=== PATIENT | male | born 1975 | race African-American/Black ===

== ENCOUNTER 2018-08-20 18:04 | Emergency (ER) | payer BC ==
[2018-08-20 18:13] VITALS: TEMP 98.2
[2018-08-20] MEDS ORDERED: IPRATROPIUM-ALBUTEROL 3 ML NEB INHALATION STA (18:41)
[2018-08-20] MEDS ORDERED: predniSONE 20 MG TAB PO STA (18:56)
--- NOTE | 2018-08-20 19:14 | ED ---
General Adult HPI - General Chief complaint: Shortness of Breath Stated complaint: LIDYA Time Seen by Provider: 08/20/18 18:42 Source: patient Mode of arrival: ambulatory Limitations: no limitations - History of Present Illness Initial comments: 42-year-old male past medical history of asthma presenting today for chief complaint of shortness of breath. Patient states that he has had congestion and cough for the past 2 days denies fever chills or night sweats. Patient denies any hemoptysis. He states that he is out of his rescue inhaler and has had increasing shortness of breath over the day and feels similar to his previous asthma exacerbations. He states the symptoms are "nothing new". 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 Patient does state that it feels like pins and needles when he coughs, denies any chest pressure, or seizures the upper extremities, jaw pain, nausea, vomiting, abdominal pain. Christine virus negative, upon arrival patient appears well, no signs of acute distress. Vital signs the center limit. Patient actually well, however 7 room air. Heart rate within normal limits. - Related Data Previous Rx's Medication Instructions Recorded Ipratropium [place] 0.06%Nasal 2 spray EA NOSTRIL BID 4 Days #1 08/20/18 [Atrovent Nasal 0.06%] bottle predniSONE 20 mg PO BID 5 Days #10 tab 08/20/18 Allergies Allergy/AdvReac Type Severity Reaction Status Date / Time erythromycin base Allergy Unknown Verified 08/20/18 18:09 Penicillins Allergy Itching Verified 08/20/18 18:09 Review of Systems ROS Statement: Those systems with pertinent positive or pertinent negative responses have been documented in the HPI. ROS Other: All systems not noted in ROS Statement are negative. Constitutional: Denies: fever, chills, night sweats ENT: Denies: ear pain, throat pain Respiratory: Reports: cough, dyspnea, wheezes. Denies: hemoptysis, stridor Cardiovascular: Reports: chest pain (with deep inspiration). Denies: palpitations, dyspnea on exertion, orthopnea, edema Endocrine: Denies: fatigue Gastrointestinal: Denies: abdominal pain, nausea, vomiting, diarrhea, constipation, hematemesis Genitourinary: Denies: urgency, dysuria, frequency, hematuria Musculoskeletal: Denies: back pain Skin: Denies: rash, lesions Neurological: Denies: headache, weakness, numbness, paresthesias, confusion Past Medical History Past Medical History: Asthma History of Any Multi-Drug Resistant Organisms: None Reported Past Surgical History: Hernia Repair Past Psychological History: Anxiety Smoking Status: Current every day smoker Past Alcohol Use History: Daily Past Drug Use History: Marijuana General Exam - General Exam Comments Initial Comments: General: The patient is awake and alert, in no distress, and does not appear acutely ill. Eye: +3 pupils are equal, round and reactive to light, extra-ocular movements are intact. No nystagmus. There is normal conjunctiva bilaterally. No signs of icterus. Ears, nose, mouth and throat: There are moist mucous membranes and no oral lesions. Oropharynx is nonerythematous, no tonsillar enlargement or exudates or lesion. No anterior cervical adenopathy. Uvula midline. Tympanic membranes are within normal limits bilaterally, not erythematous no retractions bulging or effusion. External auditory canals not edematous or erythematous. Clear rhinorrhea. Noted postnasal drip. No sinus tenderness. Neck: The neck is supple, there is no tenderness or JVD. Cardiovascular: There is a regular rate and rhythm. No murmur, rub or gallop is appreciated. Respiratory: Respirations are non-labored, breath sounds are equal. Mild wheeze noted inspiratory only on examination. No stridor, rales, or rhonchi. No retractions or abdominal breathing. Gastrointestinal: Soft, non-distended, non-tender abdomen without masses or organomegaly noted. There is no rebound or guarding present. No CVA tenderness. Bowel sounds are unremarkable. Musculoskeletal: Normal ROM, no tenderness. Strength 5/5. Sensation intact. Radial pulses equal bilaterally 2+. Neurological: A&O x 3. CN II-XII intact, There are no obvious motor or sensory deficits. Coordination appears grossly intact. Speech is normal. Skin: Skin is warm and dry and no rashes or lesions are noted. Psychiatric: Cooperative, appropriate mood & affect, normal judgment. Limitations: no limitations Course Vital Signs 08/20/18 08/20/18 08/20/18 18:09 18:50 19:07 Temperature 98.2 F Pulse Rate 91 92 92 Respiratory 18 Rate Blood Pressure 160/108 O2 Sat by Pulse 100 Oximetry 08/20/18 08/20/18 08/20/18 20:34 20:43 21:04 Temperature Pulse Rate 96 92 85 Respiratory 16 Rate Blood Pressure 129/87 O2 Sat by Pulse 100 Oximetry EKG Findings - EKG Comments: EKG Findings:: A 12-lead EKG was performed and shows the following: Rate is 72bpm, and rhythm is normal sinus. There are normal QRS complexes and normal R- wave progression. ST segments have no elevation or depression, and CT segments appear normal. Medical Decision Making - Medical Decision Making Upon arrival patient oxygen a well 100% on room air, there is no signs of respiratory distress. Patient does appear to have upper respiratory symptoms. Clear rhinorrhea with noted congestion. Mild inspiratory wheeze on examination. Patient states he has not had his rescue inhaler at home he used his last "bit" the past 2 days. Patient had significant improvement upon 1 duoneb and 1 albuterol treatment. Patient given 60 mg prednisone. Patient was discharged with 20 mg twice a day 5 days. Patient was given albuterol rescue inhaler upon discharge given is a holiday, we called local pharmacies and all within the area appeared to be closed. Laboratory findings unremarkable, chest x-ray within normal limits. At this time I do feel patient is stable for discharge with primary care follow-up next 1-2 days. I discussed the case Dr. Garcia agrees impression and plan. Patient is agreeable discharge, he verbalized understanding of all return parameters. He denies questions at this time. Vital signs within normal limits upon discharge. 100% on room air - Lab Data Result diagrams: 08/20/18 19:00 Lab Results 08/20/18 08/20/18 Range/Units 19:00 19:00 WBC 5.6 (3.8-10.6) k/uL RBC 5.05 (4.30-5.90) m/uL Hgb 15.5 (13.0-17.5) gm/dL Hct 45.3 (39.0-53.0) % MCV 89.6 (80.0-100.0) fL MCH 30.7 (25.0-35.0) pg MCHC 34.2 (31.0-37.0) g/dL RDW 12.8 (11.5-15.5) % Plt Count 199 (150-450) k/uL Neutrophils % 65 % Lymphocytes % 18 % Monocytes % 8 % Eosinophils % 5 % Basophils % 1 % Neutrophils # 3.7 (1.3-7.7) k/uL Lymphocytes # 1.0 (1.0-4.8) k/uL Monocytes # 0.4 (0-1.0) k/uL Eosinophils # 0.3 (0-0.7) k/uL Basophils # 0.1 (0-0.2) k/uL Total Creatine Kinase 153 (55-170) U/L CK-MB (CK-2) 1.4 (0.0-2.4) ng/mL CK-MB (CK-2) Rel Index 0.9 Troponin I <0.012 (0.000-0.034) ng/mL Disposition Clinical Impression: Asthma exacerbation, URI (upper respiratory infection) Disposition: HOME SELF-CARE Condition: Good Instructions: Asthma (ED), Upper Respiratory Infection (ED) Additional Instructions: Please use medication as discussed. Please follow-up with family doctor in the next 2 days. Please return to emergency room if the symptoms increase or worsen or for any other concerns. Prescriptions: Ipratropium [place] 0.06%Nasal [Atrovent Nasal 0.06%] 2 spray EA NOSTRIL BID 4 Days #1 bottle predniSONE 20 mg PO BID 5 Days #10 tab Is patient prescribed a controlled substance at d/c from ED?: No When asked, does pt state using other controlled substances?: No Referrals: None,Stated [Primary Care Provider] - 1-2 days [facility] [NON-STAFF] - 1-2 days Time of Disposition: 21:17
[2018-08-20 19:43] LABS: Basophils # (A) 0.1 k/uL (0-0.2); Basophils % (A) 1 %; Eosinophils # (A) 0.3 k/uL (0-0.7); Eosinophils % (A) 5 %; HCT 45.3 % (39.0-53.0); HGB 15.5 gm/dL (13.0-17.5); Lymphocytes % (A) 18 %; MCH 30.7 pg (25.0-35.0); MCHC 34.2 g/dL (31.0-37.0); MCV 89.6 fL (80.0-100.0); Mean Platelet Volume 6.5; Monocytes # (A) 0.4 k/uL (0-1.0); Monocytes % (A) 8 %; Neutrophils # (A) 3.7 k/uL (1.3-7.7); Neutrophils % (A) 65 %; Platelet Count 199 k/uL (150-450); RBC 5.05 m/uL (4.30-5.90); RDW 12.8 % (11.5-15.5); WBC 5.6 k/uL (3.8-10.6)
[2018-08-20] MEDS ORDERED: ALBUTEROL NEBULIZED 2.5 MG/3 ML INHALATION STA ×2 (19:45→19:49)
[2018-08-20 20:07] LABS: Creatine Kinase 153 U/L (55-170)
--- NOTE | 2018-08-20 20:10 | XR ---
EXAMINATION TYPE: XR chest 2V DATE OF EXAM: 08/20/2018 COMPARISON: NONE HISTORY: Difficulty breathing TECHNIQUE: Frontal and lateral views of the chest are obtained. FINDINGS: Heart and mediastinum are normal. Lungs are clear. Diaphragm is normal. There are chest le ads. Bony thorax appears normal. IMPRESSION: Normal chest
[2018-08-20 20:20] LABS: Creatine Kinase MB 1.4 ng/mL (0.0-2.4); Troponin I <0.012 ng/mL (0.000-0.034)
[2018-08-20] MEDS ORDERED: ALBUTEROL INHALER 60 PUFF/8 GM INHALER INHALATION STA (20:59)
[2018-08-20 21:04] VITALS: BP 129/87; PULSE 85; RESP 16
== END 2018-08-20 21:28 | disposition home or self-care (01) ==
LOC: EC 18:04
DX: J45.901 Unspecified asthma with (acute) exacerbation (principal); J06.9 Acute upper respiratory infection, unspecified; F17.200 Nicotine dependence, unspecified, uncomplicated; Z88.0 Allergy status to penicillin; Z88.1 Allergy status to other antibiotic agents
CPT/HCPCS: 36415; 94640 ×2; 93005; 82550; 82553; 84484; 85025; 71046; 99285; J7512

== ENCOUNTER 2018-12-07 19:43 | Emergency (ER) | payer BC ==
[2018-12-07 19:48] VITALS: BP 158/102; PULSE 80; RESP 20; TEMP 98.6
[2018-12-07] MEDS ORDERED: PROPARACAINE 0.5% OPHTH DROPS 15 ML BTL LEFT EYE STA (19:49)
[2018-12-07] MEDS ORDERED: FLUORESCEIN STRIPS 1 MG STRIP LEFT EYE ONE (19:49)
[2018-12-07] MEDS ORDERED: DIPH,PERTUS(ACELL)TETVAC-LF 0.5 ML VIAL IM ONE (19:50)
--- NOTE | 2018-12-07 20:29 | ED ---
General Adult HPI - General Source: patient, RN notes reviewed Mode of arrival: ambulatory Limitations: no limitations <Severo Smith P - Last Filed: 12/07/18 20:33> <Gina Ruelas P - Last Filed: 12/07/18 21:24> - General Chief complaint: ENT Stated complaint: FB eye Time Seen by Provider: 12/07/18 19:49 - History of Present Illness Initial comments: 43-year-old male presents to the emergency determine for chief for an body in the right eye. Patient states he was grinding metal about 7 hours ago and had a piece lodged in his right eye. Patient states he went to [facility] and they sent him here. Denies any visual changes. Patient states his eye just feels really irritated. Denies any significant eye pain. States tetanus is up-to-date within the past 5 years.Patient has no other complaints at this time including shortness of breath, chest pain, abdominal pain, nausea or vomiting, headache, or visual changes. (Severo Smith) - Related Data Previous Rx's Medication Instructions Recorded Ipratropium [place] 0.06%Nasal 2 spray EA NOSTRIL BID 4 Days #1 08/20/18 [Atrovent Nasal 0.06%] bottle predniSONE 20 mg PO BID 5 Days #10 tab 08/20/18 Ofloxacin 0.3% Ophth Soln [Ocuflox 2 drops RIGHT EYE Q6H 5 Days ml 12/07/18 Ophth Soln] Allergies Allergy/AdvReac Type Severity Reaction Status Date / Time erythromycin base Allergy Unknown Verified 12/07/18 19:48 Penicillins Allergy Itching Verified 12/07/18 19:48 Review of Systems ROS Other: All systems not noted in ROS Statement are negative. <Severo Smith P - Last Filed: 12/07/18 20:33> ROS Other: All systems not noted in ROS Statement are negative. <Gina Ruelas P - Last Filed: 12/07/18 21:24> ROS Statement: Those systems with pertinent positive or pertinent negative responses have been documented in the HPI. Past Medical History Past Medical History: Asthma, Hypertension History of Any Multi-Drug Resistant Organisms: None Reported Past Surgical History: Hernia Repair Past Psychological History: Anxiety Smoking Status: Current every day smoker Past Alcohol Use History: Daily Past Drug Use History: Marijuana <LuisSevero P - Last Filed: 12/07/18 20:33> General Exam Limitations: no limitations General appearance: alert, in no apparent distress Head exam: Present: atraumatic, normocephalic, normal inspection Eye exam: Present: PERRL, EOMI, other (Foreign body evident at about 6:00 in the right cornea. After foreign body removed the eye was stained with erythromycin ointment and visualized with the Wood's lamp, negative Josse sign, only abrasion present where foreign body previously located.). Absent: scleral icterus, conjunctival injection, periorbital swelling ENT exam: Present: normal exam, mucous membranes moist Neck exam: Present: normal inspection, full ROM. Absent: tenderness, meningismus, lymphadenopathy Respiratory exam: Present: normal lung sounds bilaterally. Absent: respiratory distress, wheezes, rales, rhonchi, stridor Cardiovascular Exam: Present: regular rate, normal rhythm, normal heart sounds. Absent: systolic murmur, diastolic murmur, rubs, gallop, clicks Neurological exam: Present: alert, oriented X3, CN II-XII intact Psychiatric exam: Present: normal affect, normal mood <Severo Smith P - Last Filed: 12/07/18 20:33> Course Vital Signs 12/07/18 19:44 Temperature 98.6 F Pulse Rate 80 Respiratory 20 Rate Blood Pressure 158/102 O2 Sat by Pulse 98 Oximetry Medical Decision Making <Severo Smith P - Last Filed: 12/07/18 20:33> <Gina Ruelas P - Last Filed: 12/07/18 21:24> - Medical Decision Making 43-year-old male presents for foreign body in the right eye. Patient was grinding metal when this occurred. Patient denies any significant pain, just states he has irritation. States tetanus is up-to-date. Denies any visual changes. Denies any pain with moving the eye. On exam there is a foreign body at 6:00. This was removed easily after numbing the area proparacaine with a swab. No Occasions with removal. There is no rust ring present. However I did discuss risk of rust ring developing and importance of following up with primary care or ophthalmology. The eye was then stained with proparacaine and fluorescein, visualized with lid same, negative Josse sign, no other abrasions present. Patient started on ofloxacin drops. He will follow up with primary care in 1-2 days. Will return if he has any worsening symptoms. Patient does not wear contacts. (Severo Smith) I was available for consultation in the emergency department. The history and physical exam were done by the midlevel provider. I was consulted for this patient's care. I reviewed the case with the midlevel provider and based on their presentation of the patient, I agree with the assessment, medical decision making and plan of care as documented. (Gina Ruelas) Disposition Is patient prescribed a controlled substance at d/c from ED?: No Time of Disposition: 20:28 <Severo Smith - Last Filed: 12/07/18 20:33> <Gina Ruelas - Last Filed: 12/07/18 21:24> Clinical Impression: Corneal foreign body Disposition: HOME SELF-CARE Condition: Good Instructions (If sedation given, give patient instructions): Corneal Abrasion (ED), Eye Foreign Body (ED) Additional Instructions: Please use antibiotic drops as discussed. Please follow-up with primary care or ophthalmology in 1-2 days. Return here to the emergency department if you have any worsening symptoms. Prescriptions: Ofloxacin 0.3% Ophth Soln [Ocuflox Ophth Soln] 2 drops RIGHT EYE Q6H 5 Days ml Referrals: Bj Rivas MD [Primary Care Provider] - 1-2 days Chris Busch MD [STAFF PHYSICIAN] - 1-2 days
== END 2018-12-07 20:33 | disposition home or self-care (01) ==
LOC: EC 19:43
DX: T15.01XA Foreign body in cornea, right eye, initial encounter (principal); F17.200 Nicotine dependence, unspecified, uncomplicated; Z88.1 Allergy status to other antibiotic agents; Z88.0 Allergy status to penicillin; Y93.89 Activity, other specified
CPT/HCPCS: 99282

== ENCOUNTER → 2019-08-01 | Day surgery (SDC) | payer BC, OTHER ==
[2019-07-29 14:58] VITALS: BMI 23.1
[~2019-08-01] MED LIST: BUPIVACAINE (PF) 0.5% 30 ML VIAL SQ ONE; DEXAMETHASONE SOD PHOSPHATE 10 MG/ML 1 ML VIAL IV ONE; LACTATED RINGERS 1,000 ML IV SCH; LIDOCAINE 1% 20 ML VIAL (10MG/ML) FOR IV START INTRADERMA PRN; LIDOCAINE 1% INJ 10MG/ML (20 ML MDV) ONE; LIDOCAINE 1%-EPI 1:100,000 30 ML VIAL SQ ONE; MIDAZOLAM 2 MG/2 ML VIAL IV PRN; MIDAZOLAM 2 MG/2 ML VIAL ONE; ONDANSETRON 4 MG/2 ML VIAL IVP ONE; PROPOFOL 10 MG/ML 20 ML VIAL IV ONE; Pre Op ABX Message 1 EACH MISC MISCELLANE ONE; SCOPOLAMINE 1.5MG/72HR PATCH TRANSDERM ONE; fentaNYL (PF) 50 MCG/ML 2 ML AMP ONE
[2019-08-01 17:04] VITALS: TEMP 97
[2019-08-01] MEDS: HYDROmorphone 0.5 MG/0.5 ML SYRINGE IVP PRN ×2 (17:15→17:25)
--- NOTE | 2019-08-01 17:20 | P.OP ---
Date of Procedure: 08/01/19 Preoperative Diagnosis: Right carpal tunnel syndrome Postoperative Diagnosis: Right carpal tunnel syndrome Procedure(s) Performed: Right endoscopic carpal tunnel release Anesthesia: VENANCIOA, local Surgeon: Michael Marie Estimated Blood Loss (ml): 2 Disposition: PACU Indications for Procedure: The patient is a pleasant 43-year-old male who was diagnosed with right carpal tunnel syndrome. Operative and nonoperative treatment options (and associated risks and benefits) were discussed in the office. The patient elected to proceed with surgical release. The operative site was confirmed and marked in preop. Consent forms were signed. Description of Procedure: The patient was brought to the operating suite and positioned supine with the right arm on a hand table. A tourniquet was placed on the operative arm. Anesthesia was administered uneventfully. A time-out was performed, confirming patient identifiers, the operative side, site and the procedure to be performed: all team members expressed agreement. Using aseptic technique, local anesthetic was injected into the subcutaneous tissues around the planned incision. The right upper extremity was then prepped and draped in standard, sterile fashion. The limb was exsanguinated with an Esmarch and the tourniquet was inflated. Loupe magnification was used throughout the case for optimum visualization. A 1.5 cm transverse incision was marked just proximal to the wrist flexion crease, in line with the radial border of the ring finger. The skin was sharply incised. The subcutaneous tissues were moderately dense and thickened. Spreading dissection was used to expose the volar carpal fascia. No discrete soft tissue masses were identified. A small opening was made in the fascia and a Renville was inserted beneath it to protect the nerve before incising the fascia longitudinally. A synovial elevator was used to release adhesions on the underside of the transverse carpal ligament. The washboard effect was palpable. A dilator was inserted to sound and enlarge the carpal tunnel. The hamate hook was palpable ulnarly. The side-specific guide and camera were inserted. The transverse carpal ligament was clearly visualized above. The distal edge of the ligament was identified. A rasp was used to clear the remaining synovial ad hesions. The endoscopic blade was inserted and the distal half of the ligament was sharply incised. Residual distal transverse fibers were released and then the proximal portion of the ligament was divided. Wide release of the ligament was visually confirmed. The guide and camera were removed. The volar carpal fascia was released with scissors under direct visualization, proximal and distal to the incision. After release, the nerve appeared flattened and dusky with a dense covering of thickened perineural tissue. A neurolysis was performed which significanty improved the mobility of the nerve, but it still had an injected appearance with prominent perineural vasculature. The tourniquet was released after 33 minutes at 250 mmHg. Excellent hemostasis was obtained with held pressure and bipolar cautery. The wound was thoroughly irrigated with normal saline. The incision was closed with interrupted 4-0 Nylon sutures. Additional local anesthetic with epinephrine was injected for adjuncti ve postoperative pain control and hemostasis. A soft, sterile dressing was applied. All sponge, needle and instrument counts were correct at the end of the case. The patient tolerated the procedure well and was transferred to recovery in stable condition.
[2019-08-01 17:41] VITALS: RESP 17
[2019-08-01 17:53] VITALS: BP 132/86; PULSE 77
== END | disposition home or self-care (01) ==
LOC: OR 13:21
PROVIDERS: ATTEND Orthopaedic Surgery
DX: G56.03 Carpal tunnel syndrome, bilateral upper limbs (principal); I10 Essential (primary) hypertension; J45.909 Unspecified asthma, uncomplicated; F17.210 Nicotine dependence, cigarettes, uncomplicated; Z98.890 Other specified postprocedural states; Z88.0 Allergy status to penicillin; Z88.1 Allergy status to other antibiotic agents; Z79.899 Other long term (current) drug therapy
CPT/HCPCS: 29848; J2250; J1100; J2405; J2001; J3010; J2704; J1170

== ENCOUNTER 2019-08-22 11:27 | Day surgery (SDC) | payer OTHER ==
[2019-08-15 11:13] VITALS: BMI 23.6
[~2019-08-22 11:27] MED LIST changes: -BUPIVACAINE (PF) 0.5% 30 ML VIAL SQ ONE; +HYDROmorphone 0.5 MG/0.5 ML SYRINGE IVP PRN; -LIDOCAINE 1% 20 ML VIAL (10MG/ML) FOR IV START INTRADERMA PRN; -LIDOCAINE 1% INJ 10MG/ML (20 ML MDV) ONE; -LIDOCAINE 1%-EPI 1:100,000 30 ML VIAL SQ ONE; -MIDAZOLAM 2 MG/2 ML VIAL ONE; -PROPOFOL 10 MG/ML 20 ML VIAL IV ONE; -SCOPOLAMINE 1.5MG/72HR PATCH TRANSDERM ONE; -fentaNYL (PF) 50 MCG/ML 2 ML AMP ONE
[2019-08-22 11:43] VITALS: RESP 16; TEMP 97.2
[2019-08-22] MEDS ORDERED: SCOPOLAMINE 1.5MG/72HR PATCH TRANSDERM ONE (11:48)
[2019-08-22] MEDS ORDERED: BUPIVACAINE (PF) 0.5% 30 ML VIAL SQ ONE (12:14)
[2019-08-22] MEDS ORDERED: LIDOCAINE 1%-EPI 1:100,000 20 ML VIAL SQ ONE (12:14)
[2019-08-22] MEDS ORDERED: fentaNYL (PF) 50 MCG/ML 2 ML AMP ONE (12:21)
[2019-08-22] MEDS ORDERED: PROPOFOL 10 MG/ML 20 ML VIAL IV ONE (12:21)
[2019-08-22] MEDS ORDERED: MIDAZOLAM 2 MG/2 ML VIAL ONE (12:21)
[2019-08-22] MEDS ORDERED: KETAMINE 10 MG/ML 20 ML VIAL ONE (12:21)
[2019-08-22] MEDS ORDERED: LACTATED RINGERS 1,000 ML IV ONE ×2 (12:43)
[2019-08-22 13:57] VITALS: BP 124/85; PULSE 68
--- NOTE | 2019-08-27 20:23 | P.OP ---
Date of Procedure: 08/22/19 Preoperative Diagnosis: Left carpal tunnel syndrome Postoperative Diagnosis: Left carpal tunnel syndrome Procedure(s) Performed: Left endoscopic carpal tunnel release Anesthesia: MAC, local Surgeon: Michael Marie Estimated Blood Loss (ml): 1 Condition: stable Disposition: same day Indications for Procedure: The patient is a pleasant 43-year-old male who was diagnosed with bilateral carpal tunnel syndrome. He previously underwent surgical release of his right side. He has had persistent symptoms on the left and returns for operative release. Treatment alternatives were discussed in the office and the patient elected to proceed with surgical release. In preop, the operative site was confirmed and marked. Consent forms were signed. Description of Procedure: The patient was positioned supine with the left arm on a hand table. A tourniquet was applied. Monitored anesthesia was administered uneventfully. A time-out was performed, confirming patient identifiers, the operative side, site and the procedure to be performed: all team members expressed agreement. Using aseptic technique, local anesthetic was injected into the subcutaneous tissues around the planned incision. The left upper extremity was then prepped and draped in standard, sterile fashion. The limb was exsanguinated with an Esmarch and the tourniquet was inflated. Loupe magnification was used throughout the case for optimum visualization. A 1.5 cm transverse incision was marked just proximal to the wrist flexion crease, in line with the radial border of the ring finger. The skin was sharply incised and the subcutaneous tissues were bluntly spread. The volar carpal fascia was identified and sharply incised. A Bonesteel was inserted to gently release adhesions between the nerve and the carpal ligament. A synovial elevator was used to release additional adhesions on the underside of the transverse carpal ligament. The washboard effect was palpable. A dilator was inserted to sound and enlarge the carpal tunnel. The hamate hook was palpable ulnarly. The side-specific guide and camera were inserted. The transverse carpal ligament was clearly visualized above. The distal edge of the ligament was identified and palpated with a probe. A rasp was used to clear the remaining synovial adhesions. The endoscopic blade was inserted and the distal half of the ligament was sharply incised. The ligament was thickened and dense but the tunnel did not seem quite as stenosed as his right side had been. Residual distal transverse fibers were released and then the proximal portion of the ligament was divided. Wide release of ligament was visually confirmed. The camera was removed. The volar carpal fascia, proximal and distal to the incision, was released with scissors under direct visualization. The tourniquet was released after 11 minutes at 250 mm Hg. Excellent hemostasis was obtained with manual pressure. The wound was thoroughly irrigated with normal saline. The incision was closed with interrupted 4-0 Nylon sutures. Additional local anesthetic with epinephrine was injected for adjunctive postoperative pain control and hemostasis. A soft, sterile dressing was applied. All sponge, needle and instrument counts were correct at the end of the case. The patient tolerated the procedure well and was transferred to recovery in stable condition.
== END 2019-08-22 14:15 | disposition home or self-care (01) ==
LOC: OR 11:27
PROVIDERS: ATTEND Orthopaedic Surgery
DX: G56.03 Carpal tunnel syndrome, bilateral upper limbs (principal); G56.21 Lesion of ulnar nerve, right upper limb; J45.909 Unspecified asthma, uncomplicated; Z88.0 Allergy status to penicillin; Z88.1 Allergy status to other antibiotic agents; I10 Essential (primary) hypertension; Z72.0 Tobacco use; Z79.899 Other long term (current) drug therapy
CPT/HCPCS: 29848; J2250; J1100; J2405; J3010; J2704

== ENCOUNTER → 2020-05-26 | Outpatient (CLI) | payer OTHER ==
--- NOTE | 2020-05-26 12:28 | XR ---
EXAMINATION TYPE: XR chest 2V DATE OF EXAM: 05/26/2020 COMPARISON: 08/20/2018 TECHNIQUE: PA and lateral views submitted. HISTORY: Cough FINDINGS: The lungs are clear and there is no pneumothorax, pleural effusion, or focal pneumonia. Hyperinflat ion. Biapical pleural thickening. Heart size normal. No overt failure. Hypertrophic and degenerative change of the spine. IMPRESSION: 1. No acute process. Correlate for COPD.
[2020-05-26 13:36] LABS: Basophils # (A) 0.1 k/uL (0-0.2); Basophils % (A) 1 %; Eosinophils # (A) 0.1 k/uL (0-0.7); Eosinophils % (A) 2 %; HGB 15.1 gm/dL (13.0-17.5); Lymphocytes # (A) 1.2 k/uL (1.0-4.8); Lymphocytes % (A) 20 %; MCH 30.3 pg (25.0-35.0); MCHC 32.9 g/dL (31.0-37.0); MCV 92.4 fL (80.0-100.0); Mean Platelet Volume 6.9; Monocytes # (A) 0.5 k/uL (0-1.0); Monocytes % (A) 8 %; Neutrophils # (A) 3.9 k/uL (1.3-7.7); Neutrophils % (A) 67 %; Platelet Count 179 k/uL (150-450); RBC 4.98 m/uL (4.30-5.90); WBC 5.9 k/uL (3.8-10.6)
[2020-05-26 22:36] LABS: African American GFR (CKD) 106.4 (60.0-200.0); Albumin 4.6 g/dL (3.80-4.90); Albumin/Globulin Ratio 2.42 (1.60-3.17); Anion Gap 12.2 mmol/L (4.00-12.00); Calcium 9.3 mg/dL (8.7-10.3); Carbon Dioxide 21.8 mmol/L (21.6-31.8); Globulin 1.9 g/dL (1.6-3.3); Non-African American GFR(CKD) 91.8 (60.0-200.0); Potassium 4.4 mmol/L (3.5-5.5); Total Bilirubin 1.2 mg/dL (0.3-1.2); Total Protein 6.5 g/dL (6.2-8.2)
== END | disposition home or self-care (01) ==
LOC: LABWHC1 12:05
PROVIDERS: ATTEND Family Medicine
DX: R05 Cough (principal)
CPT/HCPCS: 36415; 71046; 80053; 85025